=== PATIENT | female | born 1980 ===

== ENCOUNTER 2018-06-24 09:17 | Outpatient (REF) | payer MEDICAID, SELFPAY ==
[2018-06-24 21:40] LABS: Abs Immature Grans 0.03 k/cumm (0.0-0.09); Absolute Basophil Count 0.03 k/cumm (0.0-0.2); Absolute Eosinophil Count 0.19 k/cumm (0.0-0.7); Absolute Lymphocyte Count 2.43 k/cumm (1.2-3.4); Absolute Monocyte Count 0.71 k/cumm (0.11-0.7); Absolute Neutrophil Count 6.51 k/cumm (1.2-6.7); Basophils % 0.3; Eosinophils % 1.9; HCT 43.6 % (36.0-46.0); HGB 14.5 g/dL (12.0-15.5); Immature Grans % 0.3; Lymphocytes % 24.5; Mean Corp. HGB Concentration 33.3 g/dL (32.0-36.0); Mean Corpuscular Hemoglobin 27.2 pg (27.0-33.0); Mean Corpuscular Volume 81.6 fL (80-95); Mean Platelet Volume 11.7 fL (8.0-11.0); Monocytes % 7.2; Neutrophils % 65.8; Platelet Count 280 x1000/uL (130-400); RBC 5.34 m/cumm (4.00-5.20); RBC Distribution Width 14.4 % (11.7-14.6)
[2018-06-24 21:53] LABS: ALT 37 U/L (12-78); AST 20 U/L (15-37); Albumin 4.1 g/dL (3.4-5.0); Alkaline Phosphatase 81 U/L (46-116); Anion Gap 9.6 mmol/L (3-11); BUN 14 mg/dL (7-18); Bilirubin, Total 0.3 mg/dL (0.2-1.0); CO2 26.4 mmol/L (21.0-32.0); Calcium 8.9 mg/dL (8.5-10.1); Chloride 106 mmol/L (98-107); Cholesterol 171 mg/dL (50-200); Glucose 102 mg/dL (70-100); HDL Cholesterol 45 mg/dL (40-60); LDL CHOLESTEROL 111 mg/dL (<100); Potassium 4.1 mmol/L (3.5-5.1); Sodium 142 mmol/L (136-145); TSH (W/Ref FT4) 3.33 uIU/mL (0.358-3.74); Total Protein 7.7 g/dL (6.4-8.2); Triglyceride 121 mg/dL (30-150)
[2018-06-24 23:43] LABS: Lipase 146 U/L (73-393)
== END 2018-06-24 09:18 ==
LOC: NCHCN 09:17
PROVIDERS: PCP Nurse Practitioner Family; Visit Provider Family Medicine
DX: E88.81 Metabolic syndrome and other insulin resistance (principal); R59.1 Generalized enlarged lymph nodes; R10.12 Left upper quadrant pain
CPT/HCPCS: 80053; 80061; 83690; 83721; 83036; 84443; 85025

== ENCOUNTER 2018-07-01 14:05 | Outpatient (REF) | payer MEDICAID, SELFPAY ==
[2018-07-03 09:41] LABS: Prolactin 3.7 ng/ml
== END 2018-07-01 14:06 ==
LOC: NCHCN 14:05
PROVIDERS: PCP Nurse Practitioner Family; Visit Provider Nurse Practitioner Family
DX: N64.52 Nipple discharge (principal)
CPT/HCPCS: 84146

== ENCOUNTER 2018-10-16 10:27 | Outpatient (REF) | payer MEDICAID, SELFPAY ==
[2018-10-16 20:27] LABS: HCT 42.1 % (36.0-46.0); HGB 14.3 g/dL (12.0-15.5); Mean Corpuscular Hemoglobin 27.9 pg (27.0-33.0); Mean Corpuscular Volume 82.1 fL (80-95); Platelet Count 247 x1000/uL (130-400); RBC 5.13 m/cumm (4.00-5.20); RBC Distribution Width 13.4 % (11.7-14.6); White Blood Cell Count 9.16 k/cumm (4.4-10.8)
[2018-10-16 20:35] LABS: C-Reactive Protein 0.82 mg/dL (0.0-0.3)
[2018-10-16 21:20] LABS: ESR 22 MM/HR (0-20)
[2018-10-19 14:38] LABS: ANA Interpretation Positive (NEGAT)
[2018-10-20 10:52] LABS: c-ANCA Negative (Negative); p-ANCA Negative (Negative)
== END 2018-10-16 10:47 ==
LOC: NCHCN 10:27
PROVIDERS: PCP Nurse Practitioner Family; Visit Provider Family Medicine
DX: R79.82 Elevated C-reactive protein (CRP) (principal); R79.89 Other specified abnormal findings of blood chemistry; L43.8 Other lichen planus
CPT/HCPCS: 85027; 85652; 86038; 86140; 86255

== ENCOUNTER 2019-02-17 13:13 | Outpatient (REF) | payer MEDICAID, SELFPAY | END 2019-02-17 13:33 | LOC: NCHCN 13:13 | PROVIDERS: PCP Nurse Practitioner Family; Visit Provider Family Medicine | DX: E55.9 Vitamin D deficiency, unspecified (principal); E66.01 Morbid (severe) obesity due to excess calories; L93.0 Discoid lupus erythematosus | CPT/HCPCS: 82306 ==

== ENCOUNTER 2019-05-12 16:30 | Outpatient (REF) | payer MEDICAID, SELFPAY ==
[2019-05-12 22:14] LABS: ALT 34 U/L (12-78); AST 24 U/L (15-37); Albumin 4.1 g/dL (3.4-5.0); Alkaline Phosphatase 87 U/L (46-116); Anion Gap 11.1 mmol/L (3-11); BUN 12 mg/dL (7-18); Bilirubin, Total 0.2 mg/dL (0.2-1.0); CO2 28.9 mmol/L (21.0-32.0); CREATININE 0.85 mg/dL (0.55-1.02); Calcium 9.6 mg/dL (8.5-10.1); Chloride 102 mmol/L (98-107); Glucose 95 mg/dL (70-100); Potassium 3.9 mmol/L (3.5-5.1); Sodium 142 mmol/L (136-145); TSH (W/Ref FT4) 1.39 uIU/mL (0.358-3.74); Total Protein 7.4 g/dL (6.4-8.2)
[2019-05-13 06:50] LABS: Vitamin D 25 Total 19.4 ng/ml (30-100)
== END 2019-05-12 16:50 ==
LOC: NCHCN 16:30
PROVIDERS: PCP Nurse Practitioner Family; Visit Provider Family Medicine
DX: E55.9 Vitamin D deficiency, unspecified (principal); M32.9 Systemic lupus erythematosus, unspecified; R60.9 Edema, unspecified; E66.01 Morbid (severe) obesity due to excess calories
CPT/HCPCS: 80053; 82306; 84443

== ENCOUNTER 2021-01-02 15:04 | Outpatient (REF) | payer OTHER, SELFPAY ==
[2021-01-02 21:36] LABS: Hemoglobin A1C 5.4 % (<5.7)
[2021-01-02 21:44] LABS: ALT 31 U/L (14-59); AST 17 U/L (15-37); Alkaline Phosphatase 60 U/L (46-116); Anion Gap 7.9 mmol/L (3-11); BUN 16 mg/dL (7-18); Bilirubin, Total 0.3 mg/dL (0.2-1.0); CO2 26.1 mmol/L (21.0-32.0); CREATININE 0.8 mg/dL (0.55-1.02); Calcium 9.2 mg/dL (8.5-10.1); Calculated LDL 80 mg/dL (<100); Chloride 105 mmol/L (98-107); Cholesterol 146 mg/dL (<200); Glucose 84 mg/dL (74-106); HDL Cholesterol 40 mg/dL (40-60); Potassium 4.2 mmol/L (3.5-5.1); Sodium 139 mmol/L (136-145); Total Protein 7.1 g/dL (6.4-8.2); Triglyceride 133 mg/dL (<150)
[2021-01-03 22:54] LABS: TSH (W/Ref FT4) 1.79 uIU/mL (0.36-3.74); Vitamin B12 611 pg/mL (193-986)
== END 2021-01-02 15:05 | disposition home or self-care (01) ==
LOC: NCHCN 15:04
PROVIDERS: PCP Nurse Practitioner Family; Visit Provider Nurse Practitioner Family
DX: R73.03 Prediabetes (principal); G62.9 Polyneuropathy, unspecified; M32.9 Systemic lupus erythematosus, unspecified; Z00.00 Encounter for general adult medical examination without abnormal findings; E66.8 Other obesity; R20.2 Paresthesia of skin
CPT/HCPCS: 80053; 80061; 82607; 83036; 83735; 84443

== ENCOUNTER 2021-11-02 15:12 | Outpatient (REF) | payer MEDICAID, SELFPAY ==
[2021-11-02 16:05] LABS: Hemoglobin A1C 5.6 % (<5.7)
[2021-11-02 22:08] LABS: CRP, High Sensitivity 3.45 mg/L (See Note)
[2021-11-06 15:43] LABS: ANA Interpretation Positive (Negative); ANA Titer Pattern 1:80 Speckled; ANA Titer Pattern 2 1:160 Nucleolar
== END 2021-11-02 15:13 | disposition home or self-care (01) ==
LOC: NCHCN 15:12
PROVIDERS: PCP Nurse Practitioner Family; Visit Provider Family Medicine
DX: R73.03 Prediabetes (principal); M32.9 Systemic lupus erythematosus, unspecified; G90.8 Other disorders of autonomic nervous system
CPT/HCPCS: 86141; 83036; 84146; 86038